=== PATIENT | female | born 1965 | race African-American/Black ===

== ENCOUNTER 2021-06-03 14:41 | Emergency (ER) | payer MEDICAID ==
[~2021-06-03] VITALS: Ht 162.6 cm; Wt 91.0 kg
[2021-06-03 16:17] LABS: CHLORIDE 105 mEq/L (98-107)
[2021-06-03 16:23] LABS: ETHANOL BLOOD < 10 mg/dL
[2021-06-03 16:25] LABS: BASOPHILS % 0.6 % (0.0-2.0); EOSINOPHILS % 2.6 % (0.0-5.0); HEMATOCRIT. 36.1 % (36.0-48.0); HEMOGLOBIN. 11.9 g/dL (12.0-16.0); LYMPHOCYTES % 29.1 % (20.0-50.0); MEAN CORPUSCULAR HEMOGLOBIN 29.3 pg (28.0-32.0); MEAN CORPUSCULAR VOLUME 88.6 fL (81.0-99.0); MEAN PLATELET VOLUME 9.2 fl (7.4-10.4); MONOCYTES % 10.8 % (2.0-8.0); NEUTROPHILS % 56.9 % (40.0-76.0); PLATELET 270 x1000/uL (130-400); RED BLOOD CELL COUNT 4.07 mill/uL (4.2-5.4); RED CELL DISTRIBUTION WIDTH 16.1 % (11.6-14.6)
[2021-06-03 16:26] LABS: HCG SCREEN NEGATIVE
[2021-06-03] MEDS ORDERED: FUROSEMIDE 20MG TABLET PO ONE (17:30)
[2021-06-03] MEDS ORDERED: HYDROCODONE/ACETAMINOPHEN 5/325MG TABLET PO ONE (17:45)
[2021-06-03] MEDS ORDERED: DIPHENHYDRAMINE 50MG CAPSULE PO ONE (18:15)
[2021-06-03 19:30] VITALS: BP 132/81
== END 2021-06-03 19:50 | disposition home or self-care (01) ==
LOC: ER 14:41
DX: R60.0 Localized edema (principal); I51.7 Cardiomegaly; R53.83 Other fatigue; R41.82 Altered mental status, unspecified; I10 Essential (primary) hypertension; M17.11 Unilateral primary osteoarthritis, right knee; M10.9 Gout, unspecified
CPT/HCPCS: 36415; 70450; 71045; 80053; 80320; 83880; 84443; 84484; 84703; 85025; 93970; 99285; Q0163; G0480